=== PATIENT | female | born 1970 | race Caucasian/White ===

== ENCOUNTER 2017-11-09 20:30 | Emergency (ER) | payer OTHER ==
[~2017-11-09 20:30] MED LIST: 362 PO; ACETAMINOPHEN500 M1 PO; ATIVAN2 M1 PO; CHLORDIAZEPOXID PO; CYCLOBENZAPRINE10 M2 PO; DICLOFENAC SOD PO; FOL1 PO; KLOR-CON 88 MEQ PO; LAC PO; LORAZEPAM1 MG PO; LORAZEPAM1 PO; MAC100 PO; METHOCARBAMOL500 MG PO; MORPHINE SULFAT15 M3 PO; MSC30 PO; NEU300 PO; OXYCODONE15 MG PO; RANITIDINE HCL PO; SERTRALINE HYDR50 M1 PO; SULFACETAMIDE OU; SUMATRIPTAN SUC50 MG PO; THI100 PO; TRAMADOL50 MG PO; VAL10 PO; ZES10 PO; ZOC10 PO; ZOL50 PO
[2017-11-10 00:31] LABS: BASOPHIL % 0.1 % (0-2); PLATELET COUNT 270 x10^3mcL (130-400); RED CELL DISTRIBUTION WIDTH 14.2 % (11.5-14.5)
[2017-11-10 00:33] LABS: CARBON DIOXIDE 24.3 mmol/L (21-32); CHLORIDE SERUM 105 mmol/L (98-107); CREATININE SERUM 0.6 mg/dL (0.6-1.0); GFR1 > 60 mL/min; GLUCOSE SERUM 105 mg/dL (74-106); POTASSIUM SERUM 3.6 mmol/L (3.5-5.1); SODIUM SERUM 139 mmol/L (136-145)
[2017-11-10 01:54] LABS: AMPHETAMINE QUAL UR NONE DETECTED (NEG <=1000)
[2017-11-10 02:00] VITALS: BP 111/53
== END 2017-11-10 02:00 | disposition home or self-care (01) ==
LOC: ED 20:30
PROVIDERS: Emergency Medicine
DX: M79.641 Pain in right hand (principal); R53.1 Weakness; R42 Dizziness and giddiness; G89.29 Other chronic pain; Z88.8 Allergy status to other drugs, medicaments and biological substances
CPT/HCPCS: 36415